=== PATIENT | male | born 1960 | race Caucasian/White ===

== ENCOUNTER → 2016-03-23 | Outpatient (CLI) | payer BC ==
[~2016-03-23] MED LIST: ACET-1311 PO; ASPI81TA28 PO; HYDR25TA4 PO; IBUP-1451 PO; LRT5 PO; OXYC-106 PO; OXYC-57 PO; PEDI-49 PO; WARF2TAB PO; ZFRODT4 SL
== END | disposition home or self-care (01) ==
LOC: C.RDSM 13:48
PROVIDERS: ATTEND Physical Medicine & Rehabilitation Sports Medicine
DX: M16.0 Bilateral primary osteoarthritis of hip (principal)

== ENCOUNTER → 2016-03-23 | Outpatient (CLI) | payer BC ==
--- NOTE | 2016-03-23 15:17 | DIAGNOSTIC IMAGING REPORT ---
CHEST 2 VIEWS ROUTINE CLINICAL HISTORY: Dyspnea on exertion. History of sarcoidosis. COMPARISON STUDY: Chest radiograph August 09, 2009. FINDINGS: Lung volumes are normal. There is no pneumothorax or pleural effusion. Lungs are clear. Mild cardiomegaly is similar to prior exam. There is no evidence of pulmonary edema. IMPRESSION: 1. No acute findings. 2. Mild cardiomegaly. Electronically signed by: Carlitos Rich M.D. 03/23/2016 3:16 PM Dictated Date/Time: 03/23/2016 3:14 PM
== END | disposition home or self-care (01) ==
LOC: C.RAD1850 15:04
PROVIDERS: ATTEND Family Medicine
DX: R06.00 Dyspnea, unspecified (principal); I51.7 Cardiomegaly

== ENCOUNTER → 2016-04-08 | Outpatient (CLI) | payer BC ==
[~2016-04-08] MED LIST changes: -LRT5 PO; -OXYC-106 PO; -ZFRODT4 SL
[2016-04-08 12:01] LABS: ALT/SGPT 36 U/L (12-78); AST/SGOT 23 U/L (15-37); BLOOD UREA NITROGEN 20 mg/dl (7-18); BUN/CREATININE RATIO 21.4 (10-20); CALCIUM 8.6 mg/dl (8.5-10.1); CARBON DIOXIDE 31 mmol/L (21-32); CHLORIDE 103 mmol/L (98-107); CREATININE 0.92 mg/dl (0.60-1.40); GLUCOSE 91 mg/dl (70-99); POTASSIUM 2.9 mmol/L (3.5-5.1); SODIUM 144 mmol/L (136-145)
[2016-04-08 12:02] LABS: ALB/GLOB RATIO 1.2 (0.9-2); ALKALINE PHOSPHATASE 113 U/L (45-117)
== END | disposition home or self-care (01) ==
LOC: C.LAB 10:46
PROVIDERS: ATTEND Family Medicine Adolescent Medicine
DX: Z01.810 Encounter for preprocedural cardiovascular examination (principal)

== ENCOUNTER 2016-05-17 08:14 | Inpatient (IN) | payer BC ==
[2016-04-06 14:18] VITALS: BMI 41.0
--- NOTE | 2016-04-06 14:57 | PAT Medication Instructions ---
Service Date Apr 06, 2016. Current Home Medication List Aspirin (Aspirin Ec), 81 MG PO QAM Hydrochlorothiazide (Hctz), 25 MG PO QAM Ibuprofen Tab (Motrin), 800 MG PO Q8H PRN for Pain Pediatric Multiple Vitamin W/ (Childrens Gummies), 1 TAB PO QAM Medication Instructions For Your Scheduled Surgery - Check with surgeon for instructions: Ibuprofen Tab (Motrin), 800 MG PO Q8H PRN for Pain - Hold the following medications the morning of surgery: Pediatric Multiple Vitamin W/ (Childrens Gummies), 1 TAB PO QAM Hydrochlorothiazide (Hctz), 25 MG PO QAM - Take the following medications the morning of surgery with a sip of water: Aspirin (Aspirin Ec), 81 MG PO QAM If you have any questions please call us at [phone] (Monica Carrion PA-C) or [phone] or [phone]
[2016-04-06 15:55] LABS: BASO % 0.2 %; BASO ABS # 0.02 K/uL (0-0.2); COMPLETE YES; EOS % 2.1 %; HEMATOCRIT 40.7 % (42-52); IG% 0.2 %; LYMPH % 28.8 %; LYMPH ABS # 2.61 K/uL (1.2-3.4); MEAN CELL VOLUME 85.1 fL (80-100); MEAN CORPUSCULAR HEMOGLOBIN 31.4 pg (25-34); MEAN CORPUSCULAR HGB CONC 36.9 g/dl (32-36); MEAN PLATELET VOLUME 10.1 fL (7.4-10.4); MONO % 10.9 %; NEUT % 57.8 %; PLATELET COUNT 191 K/uL (130-400); RED BLOOD COUNT 4.78 M/uL (4.7-6.1); WHITE BLOOD COUNT 9.05 K/uL (4.8-10.8)
[2016-04-06 16:05] LABS: PARTIAL THROMBOPLASTIN RATIO 1.2; PROTHROMBIN TIME (PATIENT) 10.7 SECONDS (9.0-12.0)
[2016-04-06 16:07] LABS: URINE APPEARANCE CLEAR (CLEAR); URINE BILIRUBIN NEG (NEG); URINE COLOR YELLOW; URINE NITRITE NEG (NEG); URINE PH 5.5 (4.5-7.5); URINE SPECIFIC GRAVITY 1.026 (1.000-1.030); UROBILINOGEN NEG (NEG); ZZUR CULT IF INDIC CLEAN CATCH NO
[2016-04-06 16:08] LABS: MANUAL MICROSCOPIC REQUIRED? NO; REVIEW REQ? NO
[2016-04-06 16:17] LABS: BUN/CREATININE RATIO 19.5 (10-20); CALCIUM 8.9 mg/dl (8.5-10.1); CREATININE 1.1 mg/dl (0.60-1.40); POTASSIUM 2.6 mmol/L (3.5-5.1)
--- NOTE | 2016-04-07 17:23 | HISTORY & PHYSICAL EXAMINATION ---
DATE OF ADMISSION: 04/19/2016 CHIEF COMPLAINT: Left hip pain. HISTORY OF PRESENT ILLNESS: This 56-year-old white male presents with his , for evaluation of the left hip pain. He has had left hip pain for several decades. He states that has been present for most of his adult life. Pain has become worse over the last 2 years. He has lost motion and now has significant difficulty ambulating. He has a significant antalgic gait. Pain is worse with weightbearing and is affecting his ADLs. He denies any specific trauma. No numbness or tingling. X-rays have been obtained. He has tried activity modification as well as oral anti-inflammatories without success. He elects to proceed with left total hip arthroplasty in hopes of alleviating his pain. PAST MEDICAL HISTORY: Significant for hypertension, osteoarthritis, obesity, kidney stones, and vocal cord polyps. PREVIOUS SURGERIES: None. FAMILY HISTORY: Significant for heart disease, diabetes, previous [place] in his mother, and migraine headaches. SOCIAL HISTORY: The patient is . Employed. No tobacco use, no ETOH use. CURRENT MEDICATIONS: Aspirin 81 mg daily, HCTZ 25 mg p.o. daily, ibuprofen 800 mg t.i.d., multivitamin daily. ALLERGIES: NKDA. REVIEW OF SYSTEMS: Significant for above stated conditions, otherwise unremarkable. PHYSICAL EXAMINATION: GENERAL: Well-developed, well-nourished, middle-aged white male in no acute distress. Sitting in a chair. Alert and oriented. SKIN: Warm and dry with good turgor. No rashes or lesions. No ecchymosis or erythema. HEENT: Normocephalic, atraumatic. Eyes PERRLA, EOMI. Nares patent bilaterally without turbinate enlargement. Oropharynx without erythema or exudate. No lesions noted. Uvula midline. Oral mucosa moist. Fair dentition. Dental caps and fillings are noted. HEART: RRR. No MGR. Distant heart sounds. LUNGS: Clear to auscultation bilaterally. No crackles, rhonchi or wheezing. Good air movement. ABDOMEN: Obese. Bowel sounds present x4, soft, nontender. No organomegaly. No masses. MUSCULOSKELETAL: Left hip has no obvious asymmetry or deformity. He has very limited range of motion secondary to pain. He is unable to flex to 90 degrees. Flexion contracture of over 20 degrees. External rotation contracture as well. He cannot internally rotate to neutral secondary to bony block and pain. No pain with palpation over the greater trochanter. There is discomfort with palpation over the anterior flexion crease. Ambulatory with an antalgic gait. NEUROLOGIC: Cranial nerves II through XII are intact. Gross sensation is intact across the lower extremities by soft touch. Peripheral pulses are 2+. DATA: Radiographic images previously obtained show advanced DJD of the left hip. He has large periarticular osteophytes, subchondral sclerosis, and joint space loss. IMPRESSION: Left hip end-stage degenerative joint disease. PLAN: Informed written consent was obtained to proceed with left total hip arthroplasty. Postoperative prescriptions for Percocet and Coumadin will be provided at discharge from the hospital. Preoperative EKG, chest x-ray, and lab work have been obtained. He has already seen Dr. Youssef for medical clearance. He has an appointment on 04/07/[address] Lema for cardiac clearance. He already has a walker. Anticipate discharge to home with home health services.
--- NOTE | 2016-05-16 15:12 | HISTORY & PHYSICAL EXAMINATION ---
DATE OF ADMISSION: 05/17/2016 CHIEF COMPLAINT: Left hip pain. HISTORY OF PRESENT ILLNESS: This 56-year-old white male presents with complaints of left hip pain for several decades. He states that has been most of his adult life. Pain has become worse over the last 2 years. He has lost motion and now has significant difficulty ambulating. He has a significantly antalgic gait. Pain is worse with weightbearing and is affecting his ADLs. He denies any specific trauma. No numbness or tingling. X-rays have been obtained. He has tried activity modification as well as oral anti-inflammatories without success. He elects to proceed with left total hip arthroplasty in hopes of alleviating his pain. PAST MEDICAL HISTORY: Significant for hypertension, osteoarthritis, obesity, kidney stones, and vocal cord polyps. PREVIOUS SURGERIES: None. FAMILY HISTORY: Significant for heart disease, diabetes, previous [place] in his mother, and migraine headaches. SOCIAL HISTORY: The patient is . Employed. No tobacco use, no ETOH use. CURRENT MEDICATIONS: Aspirin 81 mg daily, HCTZ 25 mg p.o. daily, ibuprofen 800 mg p.o. t.i.d. p.r.n., multivitamin daily, potassium chloride 10 mEq p.o. daily. ALLERGIES: NKDA. REVIEW OF SYSTEMS: Significant for above stated conditions, otherwise unremarkable. PHYSICAL EXAMINATION: GENERAL: Well-developed, well-nourished middle-aged white male in no acute distress. Sitting in a chair. Alert and oriented. SKIN: Warm and dry with good turgor. No rashes or lesions. No ecchymosis or erythema. HEAD, EYES, EARS, NOSE, AND THROAT: Normocephalic, atraumatic. Eyes PERRLA, EOMI. Ears TMs intact bilaterally with good light reflexes. No erythema or bulging. Nares patent bilaterally without turbinate enlargement. Oropharynx without erythema or exudate. No lesions noted. Uvula midline. Oral mucosa moist. Fair dentition. Dental caps and fillings are noted. HEART: RRR. No MGR. LUNGS: Clear to auscultation bilaterally. No crackles, rhonchi or wheezing. Good air movement. ABDOMEN: Obese. Bowel sounds present x4, soft, nontender. No organomegaly. No masses. MUSCULOSKELETAL: Left hip has no obvious asymmetry or deformity. There is very limited range of motion secondary to pain. He is very stiff. He is unable to flex to 80 degrees. Flexion contracture of over 20 degrees. External rotation contracture as well. He internally rotates only to neutral. External rotation of around 30 degrees. No pain with palpation over the greater trochanter. There is pain with palpation over the anterior flexion crease. Ambulatory with an antalgic gait. NEUROLOGIC: Cranial nerves II through XII are intact. Gross sensation is intact across the lower extremities via soft touch. Peripheral pulses are 2+. DATA: Radiographic images previously obtained show advanced DJD of the left hip. There are large periarticular osteophytes, subchondral sclerosis, and joint space loss. IMPRESSION: Left hip end-stage degenerative joint disease. PLAN: Informed written consent has been obtained to proceed with left total hip arthroplasty. He has already seen Dr. Youssef for medical clearance and Dr. Lema for cardiac clearance. He already has a walker. Anticipate discharge to home with home health services. Preoperative lab work, EKG, and chest x-ray have been obtained. Postoperative prescriptions for Percocet and Coumadin will be provided at discharge from the hospital. The patient states he saw his dentist yesterday and his previous dental issues have fully cleared.
[~2016-05-17] VITALS: Ht 188 cm; Wt 143.9 kg
[2016-05-17] VITALS (9 sets, daily range): BP systolic 103–134; BP diastolic 67–86; PULSE 62–79; TEMP 36.3–37; O2SAT 94–99; Ht 188 cm; Wt 143.9 kg
[~2016-05-17 08:14] MED LIST changes: -ACET-1311 PO; +CEFAZOLIN 3000 MG/65 ML D5W 65 ML IV SCH; +LACTATED RINGER'S 1000ML 1,000 ML IV SCH; +LACTATED RINGER'S 1000ML IV SCH; -OXYC-57 PO; +ROPIVACAINE 5MG/ML 30 ML 150 MG, BUPIVACAINE/EPINEPHR 0.5% MPF 30 ML, KETOROLAC TROMETH... INFIL SCH; +TRANEXAMIC ACID INJ 1,000 MG in SODIUM CHLORIDE 0.9% 100ML 100 ML IV SCH; -WARF2TAB PO
--- NOTE | 2016-05-17 08:25 | History & Physical Bridge Note ---
H&P Re-Evaluation Bridge Note: I have examined the patient, reviewed the History & Physical and in the interval since the performance of the History & Physical I have noted the following changes of clinical significance: No changes noted
[2016-05-17] MEDS ORDERED: ACET-1311 PO (09:12)
[2016-05-17] MEDS ORDERED: BUPIVACAINE 0.5 % 5 MG/1 ML PF 10ML VIAL ONE (09:23)
[2016-05-17 09:24] LABS: BUN/CREATININE RATIO 19.3 (10-20); CALCIUM 8.4 mg/dl (8.5-10.1); CREATININE 0.83 mg/dl (0.60-1.40); POTASSIUM 3.8 mmol/L (3.5-5.1)
[2016-05-17 09:25] LABS: MAGNESIUM 2.2 mg/dl (1.8-2.4)
[2016-05-17] MEDS ORDERED: FENTANYL CITRATE INJ 50 MCG/1 ML 2 ML VIAL ONE ×2 (09:33→12:36)
[2016-05-17] MEDS ORDERED: MIDAZOLAM HCL 1 MG/ML 2ML VIAL ONE (09:33)
[2016-05-17] MEDS ORDERED: ATROPINE SULFATE 0.1 MG/ML 5ML SYR IV PRN (10:00)
[2016-05-17] MEDS ORDERED: FENTANYL CITRATE INJ 50 MCG/1 ML 2 ML VIAL IV PRN (10:00)
[2016-05-17] MEDS ORDERED: EpHEDrine SULFATE INJ 50 MG/ML AMP IV PRN (10:00)
[2016-05-17] MEDS ORDERED: ONDANSETRON INJ 2 MG/ML 2 ML VIAL IV PRN ×2 (10:00→13:15)
[2016-05-17] MEDS ORDERED: PROPOFOL IV EMULSION 10 MG/ML 20 ML VIAL IV ONE ×4 (10:36→12:16)
[2016-05-17] MEDS ORDERED: LIDOCAINE HCL 2% 2 ML VIAL (20MG/ML) ONE (10:36)
[2016-05-17] MEDS ORDERED: POVIDONE-IODINE OP SOLN 30 ML BTL ONE (10:56)
[2016-05-17] MEDS ORDERED: ORTHO JOINT ANESTHETIC ONE (10:56)
[2016-05-17] MEDS ORDERED: GLYCOPYRROLATE INJ 0.2 MG/ML VIAL ONE (11:30)
--- NOTE | 2016-05-17 13:00 | [facility] Post Operative Brief Note ---
Immediate Operative Summary Operative Date May 17, 2016. Pre-Operative Diagnosis Left hip end stage degenerative joint disease Post-Operative Diagnosis Left hip end stage degenerative joint disease Procedure(s) Performed Left total hip Arthroplasty Uncemented Surgeon Dr. Schumacher Binitrotoluene Operator Surgeon(s) Adrian Hagen-PAC Estimated Blood Loss 400 ML Findings severe djd Fluids (cc crystalloids) 1500cc Specimens A: Left femoral neck Drains none Anesthesia spinal Complication(s) None Disposition Recovery Room / PACU
[2016-05-17] MEDS ORDERED: MoRPHine SULFATE 2 MG/ML CARP IV PRN (13:15)
[2016-05-17] MEDS ORDERED: TAMSULOSIN HCL 0.4 MG CAP PO PRN (13:15)
[2016-05-17] MEDS ORDERED: ALUMINUM/MAGNESIUM/SIMETH (MAALOX MAX) 30 ML UDC PO PRN (13:15)
[2016-05-17] MEDS ORDERED: DiphenhydrAMINE HCL 50 MG/ML VIAL IV PRN (13:15)
[2016-05-17] MEDS ORDERED: MAGNESIUM HYDROXIDE SUSP 30 ML UDC PO PRN (13:15)
[2016-05-17] MEDS ORDERED: ACETAMINOPHEN 325 MG TAB PO PRN (13:15)
[2016-05-17] MEDS ORDERED: METOCLOPRAMIDE HCL INJ 5 MG/ML 2 ML VIAL IV PRN (13:15)
[2016-05-17] MEDS ORDERED: HYDROmorphone INJ 1 MG/ML SYR IV PRN (13:15)
[2016-05-17] MEDS ORDERED: OXYCODONE HCL IR 5 MG TAB (IMMEDIATE RELEASE) PO PRN (13:15)
[2016-05-17] MEDS ORDERED: BISACODYL 10 MG SUPP PR PRN (13:15)
--- NOTE | 2016-05-17 13:24 | OPERATIVE REPORT ---
DATE OF OPERATION: 05/17/2016 PREOPERATIVE DIAGNOSIS: Left hip end-stage degenerative joint disease. POSTOPERATIVE DIAGNOSIS: Left hip same. PROCEDURE: Left hip total hip arthroplasty using DePuy implants. SURGEON: Dr. Schumacher. DENTAL OFFICE ASSISTANT: Alejandro Hagen PA-C. HISTORY OF PRESENT ILLNESS: This 56-year-old white male presented to the office with complaints of intractable left hip pain. Symptoms have been ongoing for over a year. No specific trauma. He had tried conservative care measures without success. The patient elected to proceed with surgical intervention after being educated about potential risks and outcomes. Preoperative x-rays were obtained. OPERATION: The patient was administered spinal anesthetic and then taken to the operating room where he was given sedation. He was prepped and draped in the usual sterile fashion. Please see Dr. Schumacher's operative report for specifics of the procedure. I was present for the entire case from initial patient positioning through final wound closure. Assistance was provided in tissue retraction, hemostasis, trial implant placement, final implant placement, and final wound closure. The patient was taken to the recovery room in satisfactory condition. I attest to the content of the Intraoperative Record and any orders documented therein. Any exceptio ns are noted below.
--- NOTE | 2016-05-17 13:32 | Anesthesiology Progress Note ---
Anesthesia Post Op Note Date & Time May 17, 2016 at 13:32 Vital Signs Pain Intensity: 0 Vital Signs Past 12 Hours Date Time Temp Pulse Resp B/P Pulse Ox O2 Delivery O2 Flow Rate FiO2 05/17/16 13:24 66 18 97 05/17/16 13:24 66 18 05/17/16 13:21 112/64 05/17/16 13:19 66 18 05/17/16 13:19 65 18 98 05/17/16 13:16 121/74 05/17/16 13:14 55 18 97 05/17/16 13:14 54 18 05/17/16 13:12 117/66 05/17/16 13:09 58 18 100 05/17/16 13:09 55 18 05/17/16 13:04 55 12 05/17/16 13:04 53 12 124/57 100 05/17/16 13:04 36.5 72 16 124/57 100 Mask 10 05/17/16 08:28 36.9 70 20 134/86 96 Room Air Notes Mental Status: alert / awake / arousable, participated in evaluation Pt Amnestic to Procedure: Yes Nausea / Vomiting: adequately controlled Pain: adequately controlled Airway Patency, RR, SpO2: stable & adequate BP & HR: stable & adequate Hydration State: stable & adequate Neuraxial Anesthesia: was administered, sensory block is resolving Anesthetic Complications: no major complications apparent
--- NOTE | 2016-05-17 13:39 | PROGRESS NOTE ---
DATE: 05/17/2016 Postop check status post left total hip replacement. At this point in time, the patient is doing well. Denies chest pain, shortness of breath, fever or chills, nausea, vomiting or headache. Vital signs are stable. He is afebrile. Neurovascular check, femoral sciatic nerve is excellent. Wound dressing clean, dry and intact. X-rays pending. ASSESSMENT: Doing well. Continue with postop care pathway, Coumadin nomogram tonight. Weightbearing to tolerance if x-rays look good. Follow up in a.m. PT, OT today if possible.
--- NOTE | 2016-05-17 14:35 | OPERATIVE REPORT ---
DATE OF OPERATION: 05/17/2016 SURGEON: Dr. Schumacher. OUTREACH WORKER: Alejandro Hagen PA-C. No resident or fellow available. PREOPERATIVE DIAGNOSIS: Severe osteoarthritis, bilateral hips, left greater than right. POSTOPERATIVE DIAGNOSIS: Same. OPERATION PERFORMED: Noncemented left total hip replacement. PERIOPERATIVE SITUATION: Medically cleared male with intractable hip pain, has end-stage disease, has marked stiffness and limitations of range of motion, marked osteophyte formation and joint space narrowing. He is very, very painful, wants to proceed with hip replacement bilaterally, wants to start with the left. PROCEDURE IN DETAIL: The patient appropriately identified, site verified, consent verified, 3 grams of Ancef confirmed as being given. The left lower extremity was prepped and draped in usual routine fashion with the patient in the right lateral decubitus position. His hip was only flexed to about 80 degrees. He had no rotation. He had a 30-degree external rotation contracture and 20-degree flexion contracture. He was sterilely prepped and draped in usual routine fashion and a generous posterior approach made based on his size. Sharp dissection carried through skin and blunt dissection down to the fascia. This was then incised under direct vision. The retractors were placed. Care taken to protect the sciatic nerve. The short external rotators were released. They were all contracted. The hip capsule was all contracted, it was excised. The hip was then dislocated, the femoral neck resected. Huge osteophytes removed from the margin of the acetabulum. Serial reaming carried up to a 54 and a 54 cup impacted into position with appropriate inclination and anteversion. It had excellent rim fit. It was then secured additionally and provisionally with a 6.5 x 25 screw. The trial liner was then seated. The hip was then flexed, internally rotated. The proximal femur prepared with the journal box inspector, lateralizing rasp, and serial broaching up to a size 7, size 7 high offset stem with a +8.5. Gait superb stability, leg lengths were virtually equal. Trial implants were then removed. The wound irrigated with Betadine, Pulsavac, hole eliminator seated, permanent liner seated, permanent head and stem seated. The hip reduced. It was stable in all planes. It was irrigated with Betadine, Pulsavac and closed with #2 Vicryl for the fascial layer, #2 Vicryl for the deep fat and superficial fat with 2-0 Vicryl and skin with stainless steel clips. Appropriate soft tissue dressing applied. ESTIMATED BLOOD LOSS: 400 mL. CRYSTALLOID: 1500 mL. Deep venous thrombosis prophylaxis per protocol. SUMMARY OF IMPLANTS: Size 54 shell cup acetabular shell sector with Gription, hole eliminator, cancellous screw 6.5 x 25, 36 x 54 neutral liner, 7 high offset stem, 36+8.5 head. Deep venous thrombosis prophylaxis per protocol. I attest to the content of the Intraoperative Record and any orders documented therein. Any exceptio ns are noted below.
--- NOTE | 2016-05-17 14:52 | DIAGNOSTIC IMAGING REPORT ---
PELVIS 1 OR 2 VIEW ROUTINE CLINICAL HISTORY: Degenerative arthritis. Patient status post hip arthroplasty. COMPARISON STUDY: 03/23/2016 FINDINGS: There are postsurgical changes of a total left hip arthroplasty. No acute fractures or dislocations are visualized. There is air within soft tissues consistent with recent surgery. Overlying skin gregory are evident. IMPRESSION: Postsurgical changes of a total left hip arthroplasty Electronically signed by: Tremayne Chapin M.D. 05/17/2016 2:51 PM Dictated Date/Time: 05/17/2016 2:50 PM
[2016-05-17] MEDS ORDERED: MoRPHine SULFATE 4 MG/ML 1 ML CARP\\VIAL IV PRN (15:15)
[2016-05-17] MEDS ORDERED: OXYC-57 PO (15:26)
[2016-05-17] MEDS ORDERED: WARF2TAB PO (15:26)
[2016-05-17] MEDS ORDERED: D5W AND 1/2NSS + 20MEQ KCL 1,000 ML IV SCH (16:00)
[2016-05-17] MEDS: FERROUS GLUCONATE 324 MG TAB PO SCH (17:36)
[2016-05-17] MEDS: KETOROLAC TROMETHAMINE 30 MG/ML VIAL IV. SCH (17:36)
[2016-05-17] MEDS ORDERED: TRANEXAMIC ACID INJ 1,000 MG in SODIUM CHLORIDE 0.9% 100ML 100 ML IV SCH (19:00)
[2016-05-17] MEDS: DOCUSATE SODIUM 100 MG CAP PO SCH (20:22)
[2016-05-17] MEDS: CEFAZOLIN IV 2,000 MG in DEXTROSE 5% 50ML 50 ML IV SCH (20:46)
[2016-05-17] MEDS ORDERED: WARFARIN SOD 5 MG TAB PO SCH (21:00)
[2016-05-17] MEDS: ACETAMINOPHEN IV 1,000 MG in EMPTY BAG 0 ML IV SCH (21:18)
[2016-05-18] MEDS: KETOROLAC TROMETHAMINE 30 MG/ML VIAL IV. SCH ×3 (00:27→12:48)
[2016-05-18 03:20] VITALS: BP 113/66; PULSE 69; TEMP 36.6; O2SAT 97
[2016-05-18] MEDS: ACETAMINOPHEN IV 1,000 MG in EMPTY BAG 0 ML IV SCH ×2 (03:48→12:49)
[2016-05-18] MEDS: CEFAZOLIN IV 2,000 MG in DEXTROSE 5% 50ML 50 ML IV SCH (03:48)
[2016-05-18 06:57] LABS: PROTHROMBIN TIME (PATIENT) 10.9 SECONDS (9.0-12.0)
[2016-05-18 07:02] VITALS: BP 118/70; PULSE 61; TEMP 36.5; O2SAT 97
[2016-05-18 07:11] LABS: BUN/CREATININE RATIO 17.1 (10-20); CREATININE 0.9 mg/dl (0.60-1.40); POTASSIUM 3.8 mmol/L (3.5-5.1)
[2016-05-18 07:15] LABS: COMPLETE YES; EOS % 0.1 %; HEMATOCRIT 34.7 % (42-52); IG% 0.3 %; LYMPH % 8.7 %; LYMPH ABS # 1.19 K/uL (1.2-3.4); MEAN CELL VOLUME 88.1 fL (80-100); MEAN CORPUSCULAR HEMOGLOBIN 30.7 pg (25-34); MEAN CORPUSCULAR HGB CONC 34.9 g/dl (32-36); MEAN PLATELET VOLUME 9.8 fL (7.4-10.4); MONO % 8.5 %; NEUT % 82.4 %; PLATELET COUNT 170 K/uL (130-400); RED BLOOD COUNT 3.94 M/uL (4.7-6.1); WHITE BLOOD COUNT 13.73 K/uL (4.8-10.8)
[2016-05-18] MEDS ORDERED: DEXAMETHASONE INJ 10 MG in SYRINGE 0 ML IV ONE (07:30)
--- NOTE | 2016-05-18 08:11 | Discharge Instructions ---
Discharge Instructions Date of Service May 17, 2016. Admission Reason for Admission: Left Hip Degenerative Joint Disease Discharge Discharge Diagnosis / Problem: Left hip s/p total hip replacement Discharge Goals Goal(s): Decrease discomfort Activity Recommendations Activity Limitations: as noted below Exercise/Sports Limitations: until after follow-up appointment Shower/Bathe: keep incision dry Driving or Machine Use: No driving until cleared by Dr. Schumacher Weightbearing Status: Left weightbearing (as tolerated) . Instructions / Follow-Up Instructions / Follow-Up New Medicine: * You will likely be taking one or more of these medicines: 1. Percocet - Take, as directed, when you need it, every four to six hours to control your pain. 2. Coumadin - Thins your blood to lessen the chance of forming a blood clot. The dose of this is different for each person and is based on your blood tests that are done twice a week. * The most common side effects of pain medicine and iron are nausea and constipation. If nausea or constipation is too much of a problem or if you have any questions about your new medicines or doses, call [facility] at . We will try to help you manage these issues. VERY IMPORTANT TO READ AND REVIEW" Blood Clots and Blood Thinning Medicine: * You are given Coumadin during the immediate post-operative period to lessen the risk of blood clots forming in your legs and/or lungs. Coumadin is usually given for six weeks after surgery. * The prescription is for 2 mg tablets. At discharge, you should understand your dose and take it all at the same time every day, preferably after dinner. * You need to get your blood checked 1 - 2 times per week for six weeks, or as directed. * If your dose needs to change, we will call you. Do not take your medication on the day of the blood test until we call you. * If you don't hear from us after your blood draws, keep taking the same dose. Pain: * The immediate post-operative period after hip replacement surgery is often quite painful. * You are given a prescription for pain medicine. You should take it, as directed, when you need it, especially before physical therapy and before going to bed. Pain that interferes with sleep is very common and can last several months. * You will likely need pain medicine for the first two to four weeks. It will not stop all of the pain. The pain will lessen and as you feel better, you may change to milder pain medicine such as Tylenol. * The most common side effects of pain medicine are nausea and constipation, so don't take more than you need. Physical Therapy: * Follow the "Hip Precautions Instructions." * In some cases, the social service liaison at the hospital will arrange to have a therapist come to your house for the first couple of weeks to help you learn these skills. * You need to practice on your own or with the help of a family member as needed. * When you learn these skills, most of the therapy can be done on your own. Home Exercise: * You were shown a series of exercises in the hospital. Do these exercises three to four times each day including the exercises you were shown in physical therapy. Walking: * Get up and walk several times each day. For the first four weeks, try not to stand or walk for more than one hour at a time. If you do stand or walk for more than one hour, you will not hurt anything, but your leg will likely swell. * As you feel comfortable, you may change from the walker or crutches to a cane and then to independent walking. SELF CARE INSTRUCTIONS AFTER TOTAL HIP REPLACEMENT Until the incision and soft tissues around your hip have healed, there is a possibility that the hip prosthesis could dislocate. A. Observe the following precautions to prevent dislocation: 1. Don't bend your hip greater than 90 degrees. 2. Avoid crossing your legs or ankles while standing or lying. 3. Sit with your feet placed 6 inches apart. 4. When sitting, keep your knees below your hips. Sit on a firm surface, avoid deep, soft chairs and couches. Use an elevated toilet seat in the bathroom. 5. Don't bend over at the waist. Use a long handled shoehorn and a sock aid to help you put on your shoes and socks. A hardening machine operator can help you cloth picker objects that are too high or too low to reach. 6. Keep car riding to a minimum for at least one month after surgery. B. Your balance may be shaky for a while. Use crutches or a walker until directed by your doctor. C. Use hand rails when walking on stairs. D. Wear low heeled shoes with non-slip soles. E. Be sure that your floors are free of things that could trip you - throw rugs , electrical cords, small objects. Avoid wet and waxed floors, especially with crutches and canes. F. Try to walk several times a day with rest periods between. G. Continue with all the exercises taught to you in the hospital. Again, make walking a part of your daily routine. VERY IMPORTANT TO READ AND REVIEW A. Take Coumadin, or Lovenox (blood thinning medications) as directed by your doctor. If you are on Coumadin, have a pro-time (blood test) drawn according to your doctor's instructions. This will tell the doctor how well the Coumadin is thinning your blood. B. There are a few signs you need to watch for after you are home. If you notice any of the followin. Increased severe hip pain. Some pain is expected especially when you exercise. 2. Increased swelling in your leg or knee; pain or swelling of the calf muscle in either lower leg. 3. Any fluid drainage from the incision. 4. Shortness of breath or chest pain. TEDs/Elastic Stockings: * The white elastic stockings help limit swelling and prevent blood clots from forming in your legs. The more you wear them, the more they work. * Wear them for six weeks. Prevention of Infection: * Take antibiotics one hour before any dental cleaning, dental work, urological procedure, gastrointestinal procedure or any invasive surgery in order to prevent your new joint from getting infected. * You may get the antibiotics from the doctor performing the procedure or we will call in a prescription to the pharmacy of your choice. Call the office for a prescription at least 2 days prior to your appointment. Things to Watch For: * Drainage from the incision site that occurs more than one week after your surgery. * Severely increased leg pain or swelling. * Increased redness at the incision site. * Fever above 101 degrees Fahrenheit. * Unusual chest pain or shortness of breath. * Unusual pain or burning with urination. Current Hospital Diet Patient's current hospital diet: Regular Diet Discharge Diet Recommended Diet: Regular Diet Procedures Procedures Performed: Left total hip Arthroplasty Uncemented Pending Studies Studies pending at discharge: no Medical Emergencies . Who to Call and When: Medical Emergencies: If at any time you feel your situation is an emergency, please call 911 immediately. . Non-Emergent Contact Non-Emergency issues call your: Primary Care Provider Call Non-Emergent contact if: temperature is above 101, wound has increased drainage, wound has increased redness, wound has increased pain, you have any medication questions . "Provider Documentation" section prepared by Alejandro Hagen PA-C. VTE Core Measure Inpt VTE Proph given/why not?: Warfarin (Coumadin), T.E.D. Stockings, SCD's [place] Drug Monitoring Program Search Results: no issues identified
--- NOTE | 2016-05-18 08:15 | Orthopedic Progress Note ---
Orthopedic Progress Note Date of Service May 18, 2016. Subjective Post OP Day: 1 Reports: feeling well, Denies: SOB, calf pain, chest pain, complaints, light headedness, nausea / vomiting Additional Notes: States he would like to go home today. Objective calves soft nontender, N/V intact, hip located, capillary refill less than 2 sec., dressing C/D/I, incision C/D/I, A&O x3, toes mobile, CMS intact Minimal drainage on dressings. Date Time Temp Pulse Resp B/P Pulse Ox O2 Delivery O2 Flow Rate FiO2 05/18/16 07:02 36.5 61 19 118/70 97 Room Air 05/18/16 03:20 36.6 69 14 113/66 97 Room Air 05/18/16 00:20 Room Air 05/17/16 23:07 36.9 78 16 108/69 98 Room Air 05/17/16 20:44 36.7 72 16 117/76 94 Room Air 05/17/16 18:06 37.0 79 18 107/72 96 2.0 05/17/16 16:54 36.4 63 18 103/67 99 Nasal Cannula 2.0 05/17/16 16:00 98 Nasal Cannula 2.0 05/17/16 15:27 36.5 67 18 124/82 98 Nasal Cannula 2.0 05/17/16 14:53 36.3 62 18 117/77 96 Nasal Cannula 2.0 05/17/16 14:40 Nasal Cannula 05/17/16 14:40 Nasal Cannula 2.0 05/17/16 14:40 36.4 67 16 107/70 96 Nasal Cannula 2.0 05/17/16 14:27 66 98 05/17/16 14:27 66 05/17/16 14:22 59 22 05/17/16 14:22 58 22 95 05/17/16 14:20 104/68 05/17/16 14:17 70 18 97 05/17/16 14:17 69 18 05/17/16 14:12 54 20 96 05/17/16 14:12 54 20 05/17/16 14:11 61 17 05/17/16 14:11 65 17 96 05/17/16 14:06 64 23 94 05/17/16 14:06 65 23 105/66 05/17/16 14:01 57 19 96 05/17/16 14:01 58 19 05/17/16 13:56 59 05/17/16 13:56 62 97 05/17/16 13:51 54 12 97 05/17/16 13:51 53 12 05/17/16 13:47 102/69 05/17/16 13:46 65 25 05/17/16 13:46 69 25 97 05/17/16 13:41 64 20 98 05/17/16 13:41 68 20 05/17/16 13:40 57 22 96 05/17/16 13:40 58 22 05/17/16 13:36 102/75 05/17/16 13:35 56 21 96 05/17/16 13:35 57 21 05/17/16 13:31 108/68 05/17/16 13:30 71 25 96 05/17/16 13:30 71 25 05/17/16 13:28 108/73 05/17/16 13:25 57 16 05/17/16 13:25 55 16 97 05/17/16 13:25 36.5 05/17/16 13:24 66 18 97 05/17/16 13:24 66 18 05/17/16 13:21 112/64 05/17/16 13:19 66 18 05/17/16 13:19 65 18 98 05/17/16 13:16 121/74 05/17/16 13:14 55 18 97 05/17/16 13:14 54 18 05/17/16 13:12 117/66 05/17/16 13:09 58 18 100 05/17/16 13:09 55 18 05/17/16 13:04 55 12 05/17/16 13:04 53 12 124/57 100 05/17/16 13:04 36.5 72 16 124/57 100 Mask 10 05/17/16 08:28 36.9 70 20 134/86 96 Room Air Laboratory Results 24 Hours: Test 05/18/16 06:05 05/18/16 06:07 White Blood Count 13.73 K/uL Red Blood Count 3.94 M/uL Hemoglobin 12.1 g/dL Hematocrit 34.7 % Mean Corpuscular Volume 88.1 fL Mean Corpuscular Hemoglobin 30.7 pg Mean Corpuscular Hemoglobin Concent 34.9 g/dl Platelet Count 170 K/uL Mean Platelet Volume 9.8 fL Neutrophils (%) (Auto) 82.4 % Lymphocytes (%) (Auto) 8.7 % Monocytes (%) (Auto) 8.5 % Eosinophils (%) (Auto) 0.1 % Basophils (%) (Auto) 0.0 % Neutrophils # (Auto) 11.31 K/uL Lymphocytes # (Auto) 1.19 K/uL Monocytes # (Auto) 1.17 K/uL Eosinophils # (Auto) 0.02 K/uL Basophils # (Auto) 0.00 K/uL Prothromb Time International Ratio 1.0 Prothrombin Time 10.9 SECONDS Assessment & Plan Assessment: left hip post op day 1, s/p total hip arthroplasty Plan: PT/OT this morning D/C to home with home health later today after PT/OT Dressing changed today by me, wound looks excellent keep the dressings on until Sunday, then change daily coumadin today per nomogram, prior to D/C continue total hip precautions. Discharge Planning Discharge Planning: home with home health Pain Management: Percocet DVT Prophylaxis: TEDs, SCDs, Coumadin
--- NOTE | 2016-05-18 08:19 | PROGRESS NOTE ---
DATE: 05/18/2016 Postop day 1 status post left total hip replacement. At this point, the patient is doing well. Denies any chest pain, shortness of breath, fever, chills, nausea, vomiting or headache. He has been ambulatory in the hallway and to the bathroom. He is voiding well. Vital signs are stable. He is afebrile. Wound is clean, dry and intact. Neurovascular check femoral sciatic nerve is normal. No evidence of DVT on calf exam. Hematology reveals hematocrit stable at 34.7. INR is 1.0. Chemistry is excellent. ASSESSMENT: Doing well status post left total hip replacement. Plan is to discharge today after a.m. session of PT, OT. Discharge on 4 mg Coumadin daily. Coumadin dose per INR today.
--- NOTE | 2016-05-18 08:23 | DISCHARGE SUMMARY ---
CHIEF COMPLAINT: Left hip pain. HISTORY OF PRESENT ILLNESS: 56-year-old male with bilateral hip disease, severe, is admitted for left total hip replacement. At this point in time his hospital course has been uneventful. He is up ambulating in the hallway, voiding well. He is eating well. Desires discharge today after a.m. PT, OT. PAST MEDICAL HISTORY: Remarkable for hypertension, osteoarthritis, obesity, kidney stones, and vocal cord polyps. PREVIOUS SURGERIES: None. FAMILY HISTORY: Remarkable for heart disease, diabetes, previous [place] in his mother, migraine headaches. SOCIAL HISTORY: He is , employed. No tobacco or alcohol use. PREADMISSION MEDICATIONS: 81 mg aspirin, hydrochlorothiazide, ibuprofen, multivitamins. He will discontinue the ibuprofen. Add p.r.n. pain management equivalent of Percocet and Coumadin to keep INR 1.8-2.2. He will be discharged on 4 mg daily until INR checked on Sunday. ALLERGIES: None. REVIEW OF SYSTEMS: Reveals no chest pain, shortness of breath, fever, chills, nausea, vomiting or headache. ASSESSMENT: Overall, doing well status post left total hip replacement. Plan is to discharge after PT, OT this morning. Discharge on 4 mg of Coumadin today; the dose is per INR.
[2016-05-18] MEDS ORDERED: HYDROCHLOROTHIAZIDE 25 MG TAB PO SCH (09:00)
[2016-05-18] MEDS ORDERED: ASPIRIN 81 MG ECTAB PO SCH (09:00)
[2016-05-18] MEDS ORDERED: MULTIVITAMIN TAB PO SCH (09:00)
[2016-05-18] MEDS ORDERED: PANTOprazole SOD 40 MG TAB PO SCH (09:00)
[2016-05-18] MEDS: FERROUS GLUCONATE 324 MG TAB PO SCH ×2 (09:09→12:49)
[2016-05-18] MEDS: DOCUSATE SODIUM 100 MG CAP PO SCH (09:11)
[2016-05-18 11:07] VITALS: BP 118/70; PULSE 61; TEMP 36.5; O2SAT 97
[2016-05-18] MEDS ORDERED: WARFARIN SOD 5 MG TAB PO SCH (16:00)
== END 2016-05-18 13:59 | disposition home health service (06) | DRG 470 ==
LOC: ENRESERVTM → ENRESERVDT → C.ACU 08:14 → C.3E 08:45
PROVIDERS: ADMIT Physical Medicine & Rehabilitation Sports Medicine; ATTEND Physical Medicine & Rehabilitation Sports Medicine
PROC: 0SRB0JA Replacement of Left Hip Joint with Synthetic Substitute, Uncemented, Open Approach (ICD-10-PCS; principal; 2016-05-17 10:40)
DX: M16.0 Bilateral primary osteoarthritis of hip (principal); Z68.41 Body mass index [BMI] 40.0-44.9, adult; M24.552 Contracture, left hip; I10 Essential (primary) hypertension; D86.9 Sarcoidosis, unspecified; E66.01 Morbid (severe) obesity due to excess calories; Z79.82 Long term (current) use of aspirin; Z79.899 Other long term (current) drug therapy; Z79.1 Long term (current) use of non-steroidal anti-inflammatories (NSAID)

== ENCOUNTER → 2016-05-22 | Outpatient (CLI) | payer BC ==
[~2016-05-22] MED LIST changes: +ACET-1311 PO; -CEFAZOLIN 3000 MG/65 ML D5W 65 ML IV SCH; -IBUP-1451 PO; -LACTATED RINGER'S 1000ML 1,000 ML IV SCH; -LACTATED RINGER'S 1000ML IV SCH; +OXYC-57 PO; -ROPIVACAINE 5MG/ML 30 ML 150 MG, BUPIVACAINE/EPINEPHR 0.5% MPF 30 ML, KETOROLAC TROMETH... INFIL SCH; -TRANEXAMIC ACID INJ 1,000 MG in SODIUM CHLORIDE 0.9% 100ML 100 ML IV SCH; +WARF2TAB PO
[2016-05-22 14:46] LABS: INR 1.3 (0.9-1.1); PROTHROMBIN TIME (PATIENT) 14.6 SECONDS (9.0-12.0)
--- NOTE | 2016-05-24 10:28 | CODING QUERY NO DIAGNOSIS ---
Valid Physician Order Needed A valid physician order must be submitted in order to properly bill for the service(s) provided, including date of service(s), valid diagnosis, and physician signature. If these tests are done on a recurring basis the original physican order must be submitted in order to code and bill for the service(s) provided. Please fax us the original, signed physician order so that we may expedite billing to [phone] DOS 05/22/16 * PT/INR ORDERED BY DR. BARAKAT Thank you Iwona [facility] Information Management
== END | disposition home or self-care (01) ==
LOC: C.LABSPEC 13:33
PROVIDERS: ATTEND Physical Medicine & Rehabilitation Sports Medicine
DX: Z01.89 Encounter for other specified special examinations (principal)

== ENCOUNTER → 2016-05-26 | Outpatient (CLI) | payer BC ==
[2016-05-26 10:01] LABS: INR 2.7 (0.9-1.1)
--- NOTE | 2016-07-07 13:49 | CODING QUERY NO DIAGNOSIS ---
Valid Physician Order Needed A valid physician order must be submitted in order to properly bill for the service(s) provided, including date of service(s), valid diagnosis, and physician signature. If these tests are done on a recurring basis the original physican order must be submitted in order to code and bill for the service(s) provided. Please fax us the original, signed physician order so that we may expedite billing to [phone] 05/26/2016 PROTHROMBIN TIME Thank you Armida [facility] Information Management
== END | disposition home or self-care (01) ==
LOC: C.LABSPEC 09:22
PROVIDERS: ATTEND Physical Medicine & Rehabilitation Sports Medicine
DX: Z47.32 Aftercare following explantation of hip joint prosthesis (principal); I10 Essential (primary) hypertension; M19.91 Primary osteoarthritis, unspecified site

== ENCOUNTER → 2016-06-02 | Outpatient (CLI) | payer BC ==
[2016-06-02 12:03] LABS: INR 1.6 (0.9-1.1); PROTHROMBIN TIME (PATIENT) 17.3 SECONDS (9.0-12.0)
--- NOTE | 2016-06-08 09:26 | CODING QUERY NO DIAGNOSIS ---
Valid Physician Order Needed A valid physician order must be submitted in order to properly bill for the service(s) provided, including date of service(s), valid diagnosis, and physician signature. If these tests are done on a recurring basis the original physican order must be submitted in order to code and bill for the service(s) provided. Please fax us the original, signed physician order so that we may expedite billing to [phone] DOS 06/02/16 * PT/INR ORDERED BY DR. BARAKAT Thank you Iwona [facility] Information Management
== END | disposition home or self-care (01) ==
LOC: C.LABSPEC 11:18
PROVIDERS: ATTEND Physical Medicine & Rehabilitation Sports Medicine
DX: Z47.1 Aftercare following joint replacement surgery (principal); M19.91 Primary osteoarthritis, unspecified site; I10 Essential (primary) hypertension

== ENCOUNTER → 2016-07-17 | Outpatient (CLI) | payer BC | END | disposition home or self-care (01) | LOC: C.RDSM 12:21 | PROVIDERS: ATTEND Physical Medicine & Rehabilitation Sports Medicine | DX: Z96.649 Presence of unspecified artificial hip joint (principal) ==

== ENCOUNTER → 2017-04-23 | Outpatient (CLI) | payer BC, OTHER ==
[~2017-04-23] MED LIST changes: -OXYC-57 PO; -WARF2TAB PO
== END | disposition home or self-care (01) ==
LOC: C.RDSM 18:00
PROVIDERS: ATTEND Physical Medicine & Rehabilitation Sports Medicine
DX: M16.0 Bilateral primary osteoarthritis of hip (principal); Z96.642 Presence of left artificial hip joint

== ENCOUNTER → 2017-08-14 | Outpatient (CLI) | payer OTHER ==
[~2017-08-14] MED LIST changes: -ACET-1311 PO; +OXYC-57 PO; +POTA10CA28 PO; +WARF2TAB PO
[2017-08-14 12:06] LABS: INR 2.4 (0.9-1.1)
--- NOTE | 2017-08-31 14:35 | CODING QUERY NO DIAGNOSIS ---
Valid Physician Order Needed A valid physician order must be submitted in order to properly bill for the service(s) provided, including date of service(s), valid diagnosis, and physician signature. If these tests are done on a recurring basis the original physican order must be submitted in order to code and bill for the service(s) provided. Please fax us the original, signed physician order so that we may expedite billing to [phone] DOS 08/14/17 * PT/INR Thank you [facility] Information Management
== END | disposition home or self-care (01) ==
LOC: C.LABSPEC 11:25
PROVIDERS: ATTEND Physical Medicine & Rehabilitation Sports Medicine
DX: Z98.890 Other specified postprocedural states (principal); Z96.641 Presence of right artificial hip joint

== ENCOUNTER → 2017-10-01 | Outpatient (CLI) | payer OTHER ==
[~2017-10-01] MED LIST changes: -WARF2TAB PO
== END | disposition home or self-care (01) ==
LOC: C.RDSM 10:59
PROVIDERS: ATTEND Physical Medicine & Rehabilitation Sports Medicine
DX: Z96.641 Presence of right artificial hip joint (principal)

== ENCOUNTER 2018-04-10 06:32 | Inpatient (IN) ==
--- NOTE | 2018-03-18 08:52 | PAT Medication Instructions ---
Medication Instructions Date of Service March 18, 2018 Home Medications magnesium 250 mg PO QAM pediatric multivitamin no.136 [Children Multivitamin] 2 tab PO QAM potassium chloride 10 meq PO QAM DO NOT take the morning of surgery magnesium 250 mg PO QAM pediatric multivitamin no.136 [Children Multivitamin] 2 tab PO QAM potassium chloride 10 meq PO QAM Take morning of surgery NOTHING TO EAT OR DRINK AFTER MIDNIGHT Other Notes If you have any questions please call us at [phone] or [phone] or [phone] or [phone]
--- NOTE | 2018-03-18 10:41 | Anesthesiology Consultation ---
Date of Service March 18, 2018 Assessment & Plan (1) Encounter for pre-operative examination: Chart Review Chart Review: Acceptable Risk for Surgery and Patient seen in Pre Admission Testing Consults Requested medical (by surgeon) Patient was seen by PCP on 03/07/18 who stated that patient is medically cleared. Teaching & Discussion Pre-Anesthesia Teaching/Discussion Notes: Instructed NPO after midnight before surgery, except medications with 15 cc of water. Medication instructions provided according to the PAT guidelines. History Surgery Operation Date: 04/10/18 08:50 Proposed Procedures p Right Total Knee Arthroplasty - Kenan Schumacher MD Height/Weight Height: 6 ft 1 in Weight: 140.7 kg Allergies Allergy/AdvReac Type Severity Reaction Status Date / Time No Known Allergies Allergy Verified 03/11/18 07:59 Medications Home Medications Medication Instructions Recorded Confirmed Last Taken magnesium 250 mg PO QAM 03/11/18 03/11/18 Unknown pediatric multivitamin no.136 2 tab PO QAM 03/11/18 03/18/18 Unknown [Children Multivitamin] potassium chloride 10 meq PO QAM 03/11/18 03/11/18 Unknown Past Medical History Medical History Osteoarthritis Past Surgical History Surgical History History of total hip arthroplasty right and left Hx of colonoscopy Past Anesthesia History No Hx of Anesthesia Complications and No Family Hx of Anesthesia Complications History of PONV No Motion Sickness Screening History of Motion Sickness: No Social History Smoking Status: Never smoker Do You Dip or Chew Tobacco: No Hx Alcohol Use: No Hx Substance Use: No substance use type: does not use Exercise / Class Metabolic Activity II 4-5 Yardwork/Stairs/Walk up hill (Walks each day. Able to climb FOS. Denies CP or SOB. Does occasionally feel like breath is taken away when in alot of pain. ) Review of Systems Patient denies chest pain, shortness of breath, dyspnea on exertion, joint pain , reflux, cough, wheezing, palpitations. +joint pain (knee) Physical Exam Vital Signs BP: 120/71 P: 64 R: 20 T: 97.4 SPO2: 98% on RA Constitutional + obese ENMT Thyromental Distance: < 3.5 Finger Breadths (3) Mallampati Class: II Neck normal visual inspection and trachea midline; neck extension not limited Respiratory normal respiratory effort Auscultation: lungs clear to auscultation bilaterally Cardiovascular Rate/Rhythm: regular rate and regular rhythm Heart Sounds: no murmur Vessels: no carotid bruit Neurologic moves all extremities Psychiatric Orientation: alert and oriented x 3 Testing Electrocardiogram Date: 03/18/18 Findings: + NSR @ (65) Chest X-Ray Date: 03/18/18 Findings: + NAD and + cardiomegaly Laboratory Results 03/18/18 10:21 03/18/18 10:21 Blood Type O Negative 03/18/18 10:21 Antibody Screen NEGATIVE 03/18/18 10:21 PT 10.3 Seconds (9.0-12.0) 03/18/18 10:21 INR 1.0 (0.9-1.1) 03/18/18 10:21 APTT 28.9 Seconds (21.0-31.0) 03/18/18 10:21 Urine Color Dark Yellow 03/18/18 Unknown Urine Appearance Clear (Clear) 03/18/18 Unknown Urine pH 5.0 (4.5-7.5) 03/18/18 Unknown Ur Specific [place] 1.027 (1.000-1.030) 03/18/18 Unknown Urine Protein Negative (Negative) 03/18/18 Unknown Urine Glucose (UA) Negative (Negative) 03/18/18 Unknown Urine Ketones Negative (Negative) 03/18/18 Unknown Urine Nitrite Negative (Negative) 03/18/18 Unknown Ur Leukocyte Esterase Negative (Negative) 03/18/18 Unknown
--- NOTE | 2018-03-18 11:26 | XRay Report ---
TWO VIEW CHEST CLINICAL HISTORY: Preoperative examination. FINDINGS: PA and lateral chest radiographs are compared to study dated 07/12/2017. The PA view is degr aded by patient rotation. The heart is enlarged. The pulmonary vasculature is noncongested. Mild biba silar atelectasis is observed. No airspace consolidation or pleural effusion is identified. There is no pneumothorax. The bony thorax appears intact. Degenerative change is noted throughout the thoracic spine. IMPRESSION: Mild cardiac enlargement with no active disease in the chest. Electronically signed by: Harris Franz M.D. 03/18/2018 11:25 AM
[2018-03-18 11:36] LABS: Appearance Urine Clear (Clear); Bilirubin Urine Negative (Negative); Blood Urine Negative (Negative); Color Urine Dark Yellow; Glucose Urine UA Negative (Negative); Ketones Urine Negative (Negative); Leukocyte Esterase Urine Negative (Negative); Nitrite Urine Negative (Negative); Protein Urine Negative (Negative); Specific Gravity Urine 1.027 (1.000-1.030); Urobilinogen Urine Negative (Negative)
[2018-03-18 11:44] LABS: Calcium 8.6 mg/dl (8.5-10.1); Creatinine Clr Calc Pharmacy 148.4 ml/min; Est GFR (African American) 114.1; Est GFR (Non-African American) 98.5; Partial Thromboplastin Ratio 1.1; Partial Thromboplastin Time 28.9 Seconds (21.0-31.0); Potassium 3.8 mmol/L (3.5-5.1); Prothrombin Time 10.3 Seconds (9.0-12.0)
[2018-03-18 12:34] LABS: Basophils # (auto) 0.01 K/uL (0-0.2); Basophils % (auto) 0.2 %; Eosinophils # (auto) 0.13 K/uL (0-0.5); Eosinophils % (auto) 2.6 %; Hematocrit (blood only) 39.9 % (42-52); Hemoglobin 13.8 g/dL (14.0-18.0); Immature Granulocytes # (auto) 0.01 K/uL (0.00-0.02); Immature Granulocytes % (auto) 0.2 %; Lymphocytes # (auto) 1.55 K/uL (1.2-3.4); Lymphocytes % (auto) 31.2 %; Mean Corpuscular Hgb Conc 34.6 g/dL (32-36); Mean Corpuscular Volume 87.7 fL (80-100); Mean Platelet Volume 9.7 fL (7.4-10.4); Monocytes # (auto) 0.72 K/uL (0.11-0.59); Monocytes % (auto) 14.5 %; Neutrophils # (auto) 2.55 K/uL (1.4-6.5); Neutrophils % (auto) 51.3 %; Platelet Count 166 K/uL (130-400); RDW Coefficient of Variation 14.1 % (11.5-14.5); RDW Standard Deviation 45.2 fL (36.4-46.3); Red Blood Count 4.55 M/uL (4.7-6.1); White Blood Count 4.97 K/uL (4.8-10.8)
--- NOTE | 2018-03-20 18:06 | History and Physical Report ---
DATE OF ADMISSION: 04/10/2018 CHIEF COMPLAINT: Right knee pain. HISTORY OF PRESENT ILLNESS: This is a 58-year-old white male who presents to the office for evaluation of his right knee. He has had a long-standing history of right knee pain. Symptoms have been present for over a year. No specific injury. He notes some decreased range of motion. He denies any effusions. Pain is worse with weightbearing. It is affecting his ADLs. No numbness or tingling. He previously had both hips replaced and states he is doing well with those. X-rays of the knee have been obtained. He elects to proceed with total knee arthroplasty in hopes of alleviating his knee pain. He has tried activity modification, oral anti-inflammatories, and viscosupplementation without lasting relief. PAST MEDICAL HISTORY: Significant for obesity, osteoarthritis, history of hypertension, kidney stones, vocal cord polyps, and migraine headaches. PREVIOUS SURGERIES: Left hip TIMOTHY 04/19/2016. Right hip TIMOTHY 08/01/2017. ALLERGIES: NKDA. CURRENT MEDICATIONS: Magnesium daily, ibuprofen t.i.d. p.r.n., multivitamin daily, potassium chloride 10 mEq p.o. b.i.d., Ultracet 37.5/325 mg p.o. at bedtime. SOCIAL HISTORY: The patient is . Employed. No tobacco use. Occasional ETOH use. FAMILY HISTORY: Significant for heart disease, diabetes, and previous [place] in his mother. REVIEW OF SYSTEMS: A total of 10 systems were reviewed and are significant only for above-stated conditions. PHYSICAL EXAMINATION: GENERAL: Well-developed, well-nourished middle aged white male in no acute distress. Sitting in a chair. Alert and oriented. Very large individual. Obese. SKIN: Warm and dry with good turgor. No rashes or lesions. No ecchymosis or erythema. HEENT: Normocephalic, atraumatic. Eyes PERRLA, EOMI. Nares patent bilaterally without turbinate enlargement. Oropharynx without erythema or exudate. No lesions noted. Uvula midline. Oral mucosa moist. Fair dentition. Dental caps are noted. Fillings are noted. HEART: RRR. No MGR. LUNGS: Clear to auscultation bilaterally. No crackles, rhonchi, or wheezing. Good air movement. ABDOMEN: Obese. Bowel sounds present x4, soft, nontender. No organomegaly. No masses. MUSCULOSKELETAL: Right knee evaluation reveals obvious thickening anteriorly. No intraarticular effusion. He has full terminal extension. Flexion to greater than 100 degrees. Strength is 5/5 with good quad tone. He has focal discomfort with palpation over the medial and lateral joint lines. There are stable collateral ligaments. No defect in the patellar tendon or quadriceps tendon. Crepitus is palpable with motion. NEUROLOGIC: Gross sensation is intact across both lower extremities by soft touch. Peripheral pulses are 2+. Cranial nerves II-XII are intact. DATA: Radiographic imaging previously obtained of the right knee shows end-stage DJD of the right knee. Periarticular osteophytes, subchondral sclerosis, and joint space narrowing, especially medially, are all present. IMPRESSION: Right knee end-stage degenerative joint disease. PLAN: Postoperative prescriptions for Percocet and Coumadin will be provided at discharge from the hospital. Anticipate discharge to home with home health services. Preoperative lab work, EKG, and chest x-ray have been ordered. Medical clearance has been received from his PCP. He already has a walker.
[~2018-04-10 06:32] MED LIST changes: -ASPI81TA28 PO; +BUPIVACAINE 0.5 % 5 MG/1 ML PF 10ML VIAL ONE; +CEFAZOLIN 3000MG 65 ML IV SCH; -HYDR25TA4 PO; +LACTATED RINGER'S 1,000 ML IV SCH; +LR 15ML/HR IV SCH; +LR 500ML BOLUS, THEN 15ML/HR IV SCH; -OXYC-57 PO; -PEDI-49 PO; -POTA10CA28 PO; +ROPIVACAINE 0.5% 5 MG/ML 30 ML VIAL ONE; +ROPIVACAINE 0.5% HCL/PF 150 MG, BUPIVACAINE 0.5% MPF 30 ML, EPINEPHrine 0.15 MG, Ketoro... INFIL SCH; +TRANEXAMIC ACID 1,000 MG **IV Pre-op IV SCH
--- NOTE | 2018-04-10 06:48 | History & Physical Bridge Note ---
Date of Service April 10, 2018 History & Physical Bridge Note I have examined the patient, reviewed the History & Physical and in the interval since the performance of the History & Physical I have noted the following changes of clinical significance:consent obtained. no changes noted
[2018-04-10] MEDS ORDERED: PROPOFOL IV EMULSION 10 MG/ML 20 ML VIAL IV ONE (07:44)
[2018-04-10] MEDS ORDERED: KETAMINE HCL INJ 50 MG/ML 10 ML VIAL ONE (07:44)
[2018-04-10] MEDS ORDERED: MIDAZOLAM HCL 1 MG/ML 2ML VIAL ONE (07:44)
[2018-04-10] MEDS ORDERED: LIDOCAINE HCL 2% 2 ML VIAL/AMP(20MG/ML) INFIL ONE (07:44)
[2018-04-10] MEDS ORDERED: fentaNYL citrate 100 MCG/2 ML VIAL ONE (07:44)
[2018-04-10] MEDS ORDERED: SODIUM CHLORIDE 0.9% INJ 10 ML VIAL ONE (07:45)
[2018-04-10] MEDS ORDERED: ONDANSETRON INJ 2 MG/ML 2 ML VIAL IV PRN ×2 (08:07→12:16)
[2018-04-10] MEDS ORDERED: ATROPINE SULFATE 0.1 MG/ML 10ML SYR IV PRN (08:07)
[2018-04-10] MEDS ORDERED: ePHEDrine sulfate 50 MG/ML AMP IV PRN (08:07)
[2018-04-10] MEDS ORDERED: fentaNYL citrate 100 MCG/2 ML VIAL IV PRN (08:07)
[2018-04-10] MEDS ORDERED: POVIDONE-IODINE OP SOLN 30 ML BTL ONE (08:26)
[2018-04-10] MEDS ORDERED: ORTHO JOINT ANESTHETIC ONE (08:26)
[2018-04-10] MEDS ORDERED: ePHEDrine sulfate 50 MG/ML SYR ONE (09:13)
--- NOTE | 2018-04-10 10:44 | Operative Report ---
DATE OF OPERATION: 04/10/2018 SURGEON: Kenan Schumacher MD BILL HIKER: Alejandro Hagen PA-C. No resident or fellow available. PREOPERATIVE DIAGNOSIS: Severe osteoarthritis with flexion varus deformity, right knee. POSTOPERATIVE DIAGNOSIS: Severe osteoarthritis with flexion varus deformity, right knee. OPERATION PERFORMED: Cemented right total knee replacement. PERIOPERATIVE SITUATION: Medically cleared male with intractable knee pain, had been followed 4 years, has a hip replacement done as well, will need bilateral knee replacements and is requesting the right be done first. He understands all risks and consequences. Please see consent. SUMMARY OF IMPLANTS: Size 5 right posterior cruciate substituting femur, size 5 mobile bearing tray, oval dome 3 peg patella size 41, tibial insert size 5 x 15 posterior cruciate substituting, 2 bags of Palacos G cement, HipSwap rotating platform system. ESTIMATED BLOOD LOSS: 150 mL. Bone pathology pending on cuts. CRYSTALLOID: Per anesthesia. DVT prophylaxis with Coumadin. DESCRIPTION OF PROCEDURE: The patient appropriately identified, site verified, consent verified, antibiotics confirmed as being given. The right lower extremity was prepped and draped in usual routine fashion. TXA also confirmed as given. Tourniquet inflated to 300 mmHg with exsanguination of limb with a rubber Esmarch bandage for a total of 57 minutes. Midline exposure utilized. Parapatellar arthrotomy performed. Appropriate soft tissue releases and synovectomy completed, osteophytes resected. The distal femur then entered. Distal femur resected 14 mm, proximal tibia 4 mm, extension gap was excellent. This femur was sized between a size 6 and a 5, but was measured 6 cut 5. Flexion gap was then checked, slightly asymmetrical laterally. Capsule released and everything balanced out nicely. Posterior capsule then injected. The box cut then made and size 5 fit well. Tibia then broached and reamed to a size 5 with appropriate rotation. The knee had a little bit of flexion gap asymmetry, so went up to a size 15 spacer that fit well. The patella was then sized to 41. Appropriate resection made and the patella tracked well and the trial was seated. The wound was then injected with all of the Orthomix about the incision and about the muscular cuts. The wound was then irrigated with Betadine Pulsavac. All trial implants were removed, Betadine Pulsavac irrigation carried out again and then the permanent cemented in position. After 12 minutes, the tourniquet deflated. After 14 minutes, the knee flexed, the trial spacer removed. Everything irrigated one final time. No major cement removal required. Permanent liner then seated. The knee reduced and the knee closed at 60 degrees of flexion with #2 Vicryl for the capsule layer, 2-0 Vicryl for subcutaneous layer and stainless steel clips for skin. Appropriate dressing applied. The patient transferred to the recovery room in satisfactory condition having tolerated the procedure well. I attest to the content of the Intraoperative Record and any orders documented therein. Any exception s are noted below.
--- NOTE | 2018-04-10 11:00 | XRay Report ---
XR knee RT 2V routine CLINICAL HISTORY: Surgical Post Op COMPARISON: 11/09/2017 DISCUSSION: Total right knee arthroplasty. Good contact between prosthetic and underlying bone. Expec barry soft tissue postoperative change. IMPRESSION: Anatomic alignment post total right knee arthroplasty. The above report was generated using voice recognition software. It may contain grammatical, syntax or spelling errors. Electronically signed by: Yousif Meyer M.D. 04/10/2018 10:59 AM
--- NOTE | 2018-04-10 11:01 | Post Operative Brief Note ---
Immediate Post Op Note v1 Date of Surgery April 10, 2018 Pre & Post Diagnosis Operation Date: 04/10/18 08:50 Pre-Op Diagnosis: Right Knee End-Stage Degenerative Joint Disease Post-Op Diagnosis: Right Knee End-Stage Degenerative Joint Disease Procedure Operation Date: 04/10/18 08:50 Actual Procedures p Right Total Knee Arthroplasty(Right) - Kenan Schumacher MD Surgeon Kenan Schumacher MD Blood Bank Techn[facility] Estimated Blood Loss 150 Findings Consistent with Post-Op Diagnosis
--- NOTE | 2018-04-10 11:02 | Operative Report ---
Post Operative Report Pre & Post Diagnosis Operation Date: 04/10/18 08:50 Pre-Op Diagnosis: Right Knee End-Stage Degenerative Joint Disease Post-Op Diagnosis: Right Knee End-Stage Degenerative Joint Disease Procedure Operation Date: 04/10/18 08:50 Actual Procedures p Right Total Knee Arthroplasty(Right) - Kenan Schumacher MD Surgeon LEATHA Schumacher MD Consumer Sales Representative samina Estimated Blood Loss 150 Findings Consistent with Post-Op Diagnosis Specimens See operative report Drains none Complications none Disposition Accompanied Patient To Recovery: Yes Disposition: Recovery Room Indications This 58-year-old white male presented to the office with complaints of intractable right knee pain. He previously had right and left total hip arthroplasties and has done well with those. He continues to have pain in the right knee. He has tried conservative care measures including activity modification, without improvement. He elected to proceed with surgical intervention after being educated about potential risks and outcomes. Preoperative imaging was obtained. Description of Procedure Patient was administered a spinal anesthetic and then taken to the operating room where he was given sedation. He was prepped and draped in the usual sterile fashion. Please see Dr. Schumacher's operative report for specifics of the procedure. I was present for the entire case from initial patient positioning through final wound closure. Assistance was provided in tissue retraction, hemostasis, trial implant placement, final implant placement, and f inal wound closure. Patient was taken to the recovery room in satisfactory condition. I attest to the content of the Intraoperative Record and any orders documented therein. Any exceptions are noted below.
--- NOTE | 2018-04-10 11:32 | Progress Note ---
DATE: 04/10/2018 Postop check status post right total knee replacement. The patient is seen in recovery room. He denies any chest pain, shortness of breath, fever, chills, nausea, vomiting or headache. He notes that his legs are starting to wake up. Still has a significant sensory motor deficit from his spinal but is starting to move things distally. Wound dressing clean, dry and intact. Pulses intact. Good capillary refill. X-ray AP and lateral of the right knee reveals well fixed, well aligned knee replacement. ASSESSMENT: Doing well status post right total knee replacement. Continue with postop care pathway. When able to move his legs and has strength get up and mobilize.
[2018-04-10] MEDS ORDERED: MAGNESIUM HYDROXIDE SUSP 30 ML UDC PO PRN (12:16)
[2018-04-10] MEDS ORDERED: BISACODYL 10 MG SUPP PR PRN (12:16)
[2018-04-10] MEDS ORDERED: OXYCODONE HCL IR 5 MG TAB (IMMEDIATE RELEASE) PO PRN (12:16)
[2018-04-10] MEDS ORDERED: SODIUM CHLORIDE 0.9% 1000ML 1,000 ML IV SCH (12:16)
[2018-04-10] MEDS ORDERED: NALOXONE HCL 0.4 MG/1 ML VIAL/CARP IV PRN (12:16)
[2018-04-10] MEDS ORDERED: TAMSULOSIN HCL 0.4 MG CAP PO PRN (12:16)
[2018-04-10] MEDS ORDERED: METOCLOPRAMIDE HCL INJ 5 MG/ML 2 ML VIAL IV PRN (12:16)
[2018-04-10] MEDS ORDERED: ALUMINUM/MAGNESIUM SUSP 30 ML UDC PO PRN (12:16)
[2018-04-10] MEDS ORDERED: DiphenhydrAMINE HCL 50 MG/ML VIAL IV PRN (12:16)
[2018-04-10] MEDS ORDERED: HYDROmorphone INJ 0.5 MG/0.5 ML SYR IV PRN (12:16)
--- NOTE | 2018-04-10 12:35 | Anesthesiology Progress Note ---
Date of Service April 10, 2018 Anesthesia Post Procedure Vital Signs Vital Signs: Temp Pulse Pulse Resp BP Pulse Ox 04/10/18 12:21 97.7 F 60 16 133/81 96 04/10/18 11:08 98.2 F 69 16 128/66 97 04/10/18 11:00 61 16 127/70 95 04/10/18 10:50 63 16 127/72 95 04/10/18 10:40 71 16 115/68 98 04/10/18 10:34 97.0 F L 96 H 16 121/78 96 04/10/18 07:25 97.9 F 67 20 160/87 H 97 Notes Mental Status: alert / awake / arousable and participated in evaluation Patient Amnestic to Procedure: Yes Nausea / Vomiting: adequately controlled Pain: adequately controlled Airway Patency, RR, SpO2: stable & adequate BP & HR: stable & adequate Hydration State: stable & adequate Neuraxial Anesthesia: was administered and sensory block is resolving Anesthetic Complications: no major complications apparent and Pt Satisfied with anesthetic care
[2018-04-10] MEDS ORDERED: Nursing to Pharmacy Communication ONE (12:50)
[2018-04-10] MEDS ORDERED: ORTHO WARFARIN NOMOGRAM SCH (14:00)
[2018-04-10] MEDS: ACETAMINOPHEN 500 MG TAB PO SCH ×2 (14:16→21:11)
[2018-04-10] MEDS ORDERED: WARFARIN SOD 5 MG TAB PO ONE (16:00)
[2018-04-10] MEDS: CEFAZOLIN 2000MG 2,000 MG/15 ML SYR IV SCH (17:17)
[2018-04-10] MEDS: FERROUS GLUCONATE 324 MG TAB PO SCH (17:17)
[2018-04-10] MEDS ORDERED: TRANEXAMIC ACID 1,000 MG in 0.9 % SODIUM CHLORIDE 100 ML IV ONE (17:30)
[2018-04-10] MEDS: KETOROLAC 30 MG/ML VIAL IV SCH (17:41)
[2018-04-10] MEDS: DOCUSATE SODIUM 100 MG CAP PO SCH (20:08)
[2018-04-10] MEDS ORDERED: SENNA 8.6 MG TAB PO SCH (21:00)
[2018-04-11] MEDS: KETOROLAC 30 MG/ML VIAL IV SCH ×3 (00:12→10:52)
[2018-04-11] MEDS: CEFAZOLIN 2000MG 2,000 MG/15 ML SYR IV SCH (00:12)
[2018-04-11 06:00] LABS: Hematocrit (blood only) 34.6 % (42-52); Hemoglobin 11.8 g/dL (14.0-18.0); Mean Corpuscular Hgb Conc 34.1 g/dL (32-36); Mean Corpuscular Volume 86.9 fL (80-100); Mean Platelet Volume 9.3 fL (7.4-10.4); Platelet Count 152 K/uL (130-400); RDW Coefficient of Variation 13.5 % (11.5-14.5); RDW Standard Deviation 43.3 fL (36.4-46.3); Red Blood Count 3.98 M/uL (4.7-6.1)
[2018-04-11] MEDS: ACETAMINOPHEN 500 MG TAB PO SCH (06:02)
[2018-04-11 06:08] LABS: INR 1.1 (0.9-1.1); Prothrombin Time 11.1 Seconds (9.0-12.0)
--- NOTE | 2018-04-11 06:48 | Progress Note ---
DATE: 04/11/2018 SUBJECTIVE: Postop day #1 status post right total knee replacement. The patient is doing well, has no major issues. Has expected amount of pain. Expected amount of stiffness. He denies chest pain, shortness of breath, fever, chills, nausea, vomiting or headache. He has been up ambulatory. He has no major issues. OBJECTIVE: Vital signs are stable. He is afebrile. Neurovascular check femoral sciatic nerve is normal. Hematocrit is stable at 34.6. INR is 1.1. Wound dressing clean, dry and intact. Calves nontender. Femoral sciatic nerve function is excellent. ASSESSMENT: Overall, doing well. Discharge to home today after PT, OT. Discharge on 4 mg Coumadin. Check INR on Sunday. Dressing change today before discharge by PA.
[2018-04-11 06:51] LABS: BUN Creatinine Ratio 21.2 (10-20); Creatinine Clr Calc Pharmacy 161.7 ml/min; Est GFR (African American) 117.8; Est GFR (Non-African American) 101.7; Potassium 3.7 mmol/L (3.5-5.1)
--- NOTE | 2018-04-11 06:53 | Discharge Summary ---
CHIEF COMPLAINT: Right knee pain. HISTORY OF PRESENT ILLNESS: Underwent elective right total knee replacement. The patient's hospital course has been uneventful. PAST MEDICAL HISTORY: Remarkable for obesity, osteoarthritis, hypertension, kidney stones, vocal cord polyps, migraines. PAST SURGICAL HISTORY: Include bilateral hip arthroplasties. ALLERGIES: None. PREADMISSION MEDICATIONS: Include magnesium, ibuprofen, multivitamins, potassium chloride, Ultracet. He stopped the potassium. He stopped the ibuprofen. He will add p.r.n. pain medication, see script. He will add Coumadin to keep INR 1.8-2.2. Discharge on 4 mg. Check INR on Sunday. FAMILY HISTORY: Remarkable for heart disease, diabetes. REVIEW OF SYSTEMS: Noncontributory. ASSESSMENT: Overall, doing well status post right total knee replacement, discharge to home today after PT, OT. Follow up in 2 weeks for staple removal. Case management involved.
[2018-04-11] MEDS ORDERED: dexAMETHasone 10 MG in SYRINGE 0 ML IV SCH (08:00)
[2018-04-11] MEDS: DOCUSATE SODIUM 100 MG CAP PO SCH (08:40)
[2018-04-11] MEDS: FERROUS GLUCONATE 324 MG TAB PO SCH (08:40)
[2018-04-11] MEDS ORDERED: Nursing to Pharmacy Communication ONE (08:45)
[2018-04-11] MEDS ORDERED: POTASSIUM CHLORIDE 10 MEQ TABCR PO SCH (09:00)
[2018-04-11] MEDS ORDERED: MULTIVITAMIN TAB PO SCH (09:00)
[2018-04-11] MEDS ORDERED: [UNRECOGNIZED DRUG - REMARK] PO SCH (09:00)
[2018-04-11] MEDS ORDERED: WARFARIN SOD 5 MG TAB PO ONE (10:00)
--- NOTE | 2018-04-11 11:36 | Anesthesiology Progress Note ---
Date of Service April 11, 2018 Anesthesia Post Procedure Vital Signs Vital Signs: Temp Pulse Resp BP BP Pulse Ox 04/11/18 07:05 36.8 C 69 18 151/79 H 97 04/11/18 03:34 36.6 C 68 16 130/74 97 04/10/18 22:45 36.5 C 67 16 139/79 95 04/10/18 20:06 36.4 C L 61 18 125/75 95 04/10/18 15:15 36.3 C L 64 16 131/81 95 04/10/18 14:27 57 L 16 127/74 94 04/10/18 13:31 62 16 138/73 99 04/10/18 12:21 36.5 C 60 16 133/81 96 Notes Mental Status: alert / awake / arousable and participated in evaluation Patient Amnestic to Procedure: Yes Nausea / Vomiting: adequately controlled Pain: adequately controlled Airway Patency, RR, SpO2: stable & adequate BP & HR: stable & adequate Hydration State: stable & adequate Neuraxial Anesthesia: was administered and sensory block resolved Anesthetic Complications: no major complications apparent and Pt Satisfied with anesthetic care
[2018-04-11 11:37] VITALS: BP 120/78; PULSE 70; TEMP 98.1
[2018-04-11 13:18] VITALS: O2SAT 98
== END 2018-04-11 12:16 | disposition home health service (06) | DRG 470 ==
LOC: ASU 06:32 → 3E 11:49